=== PATIENT | male | born 1950 | race Caucasian/White ===

== ENCOUNTER 2023-10-03 08:35 | Outpatient (CLI) | payer OTHER ==
--- NOTE | 2023-10-03 16:44 | XRAY Report ---
PROCEDURE: Lumbar Spine 2-3V INDICATIONS: LOW BACK PAIN TECHNIQUE: 3 views of the lumbar spine were acquired. COMPARISON: None. FINDINGS: Bones: 5 [id number] vertebrae are present. There is trace retrolisthesis of L2 on L3. Multilev el moderate to severe disc space narrowing is present most severe at L2-3 through L5-S1. Sclerotic re active endplate changes are present. Multilevel anterior osteophytes most significant at L3-4. Multil evel moderate to severe foraminal narrowing most prominent from L2-3 through L5-S1 and severe at L5-S 1. No vertebral body compression fractures. No suspicious bony lesions. Soft tissues: Overlying bowel gas pattern is normal. No suspicious soft tissue calcifications. IMPRESSION: Multilevel degenerative changes most severe at L5-S1. Reviewed by: Nicol Coronado MD on 10/03/2023 4:42 PM PDT Approved by: Nicol Coronado MD on 10/03/2023 4:42 PM PDT Station ID: [id number]
== END 2023-10-03 08:36 | disposition home or self-care (01) ==
LOC: DI 08:35
PROVIDERS: ATTEND Student in an Organized Health Care Education/Training Program
DX: M47.816 Spondylosis without myelopathy or radiculopathy, lumbar region (principal); M47.817 Spondylosis without myelopathy or radiculopathy, lumbosacral region